=== PATIENT | female | born 1985 | race Two or more races ===

== ENCOUNTER 2016-08-23 22:46 | Emergency (ER) | payer MEDICAID ==
[~2016-08-23] VITALS: Ht 157.5 cm; Wt 79.4 kg
[~2016-08-23 22:46] MED LIST: ALBU8.5H8 IH; HYDR-3326 PO; TYLENOL PO
[2016-08-23] MEDS ORDERED: HYDROMORPHONE 1 MG/1 ML DISP.SYRIN IV ONE (23:15)
[2016-08-23] MEDS ORDERED: NITROFURANTOIN/NITROFURAN MAC 100 MG CAPSULE PO ONE (23:15)
[2016-08-23] MEDS ORDERED: ONDANSETRON IV *ER 4 MG/2 ML VIAL IV ONE (23:15)
[2016-08-23] MEDS ORDERED: CEFTRIAXONE 1 G in IV DEXTROSE 5% 50 ML IV ONE (23:15)
[2016-08-23 23:27] LABS: *BILIRUBIN,URIN NEGATIVE (NEGATIVE); *BLOOD, URINE 2+ (NEGATIVE); *CLARITY,URINE CLEAR (CLEAR); *COLOR,URINE YELLOW (YELLOW); *KETONES,URINE 1+ (NEGATIVE); *PROTEIN,URINE 1+ (NEGATIVE); *UROBILINOGEN,URINE 0.2 E.U./dl (NORMAL); LEUKOCYTE ESTERASE ,URINE 1+ (NEGATIVE); NITRITE, URINE NEGATIVE (NEGATIVE); UGLUCOSE NEGATIVE (NEGATIVE)
[2016-08-23] MEDS ORDERED: ONDANSETRON 4 MG/2 ML VIAL ONE (23:31)
[2016-08-23] MEDS ORDERED: NITROFURANTOIN/NITROFURAN MAC 100 MG CAPSULE ONE (23:31)
[2016-08-23] MEDS ORDERED: CEFTRIAXONE 1 G VIAL ONE (23:31)
[2016-08-23] MEDS ORDERED: HYDROMORPHONE 1 MG/1 ML DISP.SYRIN ONE (23:31)
[2016-08-23 23:32] LABS: *URINE HCG, QUAL NEGATIVE (NEGATIVE); BACTERIA,URINE FEW /HPF (NONE SEEN); SQUAMOUS EPITHELIAL CELL,UR FEW /HPF (NONE SEEN)
[2016-08-23 23:34] LABS: BASOPHILS % (AUTO) 0.3 % (0.0-2.0); EOSINOPHILS # (AUTO) 0.1 K/uL (0.0-0.7); EOSINOPHILS % (AUTO) 2.1 % (0.0-7.0); HEMATOCRIT 34.9 % (37-47); HEMOGLOBIN 11.1 G/DL (12.0-16.0); LYMPHOCYTES # (AUTO) 1.9 K/UL (0.8-4.8); LYMPHOCYTES % (AUTO) 30.2 % (20.5-51.5); MEAN CORPUSCULAR HEMOGLOBIN 23.8 UUG (27.0-31.0); MEAN CORPUSCULAR HGB CONC 32 g/dL (32.0-37.0); MONOCYTES # (AUTO) 0.4 K/UL (0.1-1.30); NEUTROPHILS % (AUTO) 61.4 % (38.5-71.5); PLATELET COUNT (AUTO) 391 K/UL (150-450); RED BLOOD CELL COUNT(AUTO) 4.65 MIL/UL (4.2-5.4); WHITE BLOOD COUNT (AUTO) 6.4 K/UL (4.0-11.2)
[2016-08-23 23:46] LABS: BILIRUBIN,TOTAL 0.3 mg/dL (0.2-1.0); CREATININE 0.6 mg/dL (0.6-1.3); POTASSIUM 3.5 mmol/L (3.5-5.1); TOTAL PROTEIN, SERUM 7.4 g/dL (6.4-8.2)
--- NOTE | 2016-08-24 00:31 | NUR ---
Patient discharged to home in stable conditon. Written and verbal after care instructions given. Patient verbalizes understanding of instructions.
== END 2016-08-24 00:32 | disposition home or self-care (01) ==
LOC: ER 22:55
DX: N12 Tubulo-interstitial nephritis, not specified as acute or chronic (principal); J45.909 Unspecified asthma, uncomplicated; Z88.6 Allergy status to analgesic agent; Z88.8 Allergy status to other drugs, medicaments and biological substances
CPT/HCPCS: 36415; 84703; 85025; 87086; A4663; J0696; J1170; J2405; J7060

== ENCOUNTER 2016-11-21 05:20 | Emergency (ER) | payer MEDICAID ==
[~2016-11-21] VITALS: Ht 154.9 cm; Wt 73.5 kg
--- NOTE | 2016-11-21 06:08 | NUR ---
Xray at bedside
--- NOTE | 2016-11-21 06:10 | NUR ---
Blood work specimen submitted to Lab @ 0605 by primary RN.
--- NOTE | 2016-11-21 06:10 | NUR ---
RT at bedside.
[2016-11-21 06:20] LABS: BASOPHILS % (AUTO) 0.3 % (0.0-2.0); EOSINOPHILS # (AUTO) 0.6 K/uL (0.0-0.7); EOSINOPHILS % (AUTO) 3.6 % (0.0-7.0); HEMATOCRIT 35.1 % (37-47); HEMOGLOBIN 11.6 G/DL (12.0-16.0); LYMPHOCYTES # (AUTO) 1.6 K/UL (0.8-4.8); LYMPHOCYTES % (AUTO) 10.4 % (20.5-51.5); MEAN CORPUSCULAR HEMOGLOBIN 24.5 UUG (27.0-31.0); MEAN CORPUSCULAR HGB CONC 33 g/dL (32.0-37.0); MEAN CORPUSCULAR VOLUME 74.3 FL (81.0-99.0); MONOCYTES # (AUTO) 0.5 K/UL (0.1-1.30); NEUTROPHILS % (AUTO) 82.7 % (38.5-71.5); PLATELET COUNT (AUTO) 415 K/UL (150-450); RED BLOOD CELL COUNT(AUTO) 4.73 MIL/UL (4.2-5.4); WHITE BLOOD COUNT (AUTO) 15.7 K/UL (4.0-11.2)
[2016-11-21 06:31] LABS: BILIRUBIN,DIRECT 0.1 mg/dL (0.0-0.2); BILIRUBIN,TOTAL 0.3 mg/dL (0.2-1.0); CREATININE 0.6 mg/dL (0.6-1.3); POTASSIUM 3.1 mmol/L (3.5-5.1); TOTAL PROTEIN, SERUM 7.4 g/dL (6.4-8.2)
--- NOTE | 2016-11-21 07:05 | NUR ---
Report to Alem AGUILAR. Patient in bed, no respiratory distress noted. Will continue to monitor patient.
[2016-11-21 07:42] VITALS: BP 110/61
--- NOTE | 2016-11-21 07:43 | NUR ---
Patient discharged to home in stable conditon. Written and verbal after care instructions given. Patient verbalizes understanding of instructions.
[2016-11-21 08:08] LABS: BAND % (MANUAL) 4 % (0-10); EOSINOPHILS % (MANUAL) 4 % (0-8); LYMPHOCYTES % (MANUAL) 12 % (20-40); MONOCYTES % (MANUAL) 3 % (2-10); NEUTROPHILS % (MANUAL) 77 % (42-75)
== END 2016-11-21 07:43 | disposition home or self-care (01) ==
LOC: ER 05:22
DX: J45.41 Moderate persistent asthma with (acute) exacerbation (principal); Z88.6 Allergy status to analgesic agent
CPT/HCPCS: 36415; 71010; 80048; 80076; 84484; 84703; 85025; 93005; 94644; 96374; 99285; A4663; J2930; J3590; J7030; 70030-TC

== ENCOUNTER 2018-11-08 18:44 | Emergency (ER) | payer MEDICAID, OTHER ==
[~2018-11-08] VITALS: Ht 154.9 cm; Wt 68.9 kg
--- NOTE | 2018-11-08 19:35 | NUR ---
PT RECEIVED C/O INTERMITTENT LUQ ABD PAIN AND FEVER X2DAYS [id number] DENIES HEADACHES/ CHILLS MONITORED ACCORDINGLY MD AT BEDSIDE FOR HX AND PHYSICAL
[2018-11-08 19:47] LABS: BASOPHILS % (AUTO) 0.5 % (0.0-2.0); EOSINOPHILS # (AUTO) 0.1 K/uL (0.0-0.7); EOSINOPHILS % (AUTO) 1.3 % (0.0-7.0); HEMATOCRIT 32.9 % (31.2-41.9); HEMOGLOBIN 10.6 g/dL (10.9-14.3); LYMPHOCYTES # (AUTO) 0.7 K/uL (20.0-40.0); LYMPHOCYTES % (AUTO) 13.2 % (20.5-51.5); MEAN CORPUSCULAR HEMOGLOBIN 23.1 uug (24.7-32.8); MEAN CORPUSCULAR HGB CONC 32 g/dL (32.3-35.6); MEAN CORPUSCULAR VOLUME 71.7 fL (75.5-95.3); MONOCYTES # (AUTO) 0.3 K/uL (2.0-10.0); MONOCYTES % (AUTO) 5.4 % (0.0-11.0); NEUTROPHILS # (AUTO) 4.5 K/uL (1.8-8.9); NEUTROPHILS % (AUTO) 79.6 % (38.5-71.5); PLATELET COUNT (AUTO) 282 K/uL (179-408); RED BLOOD CELL COUNT(AUTO) 4.59 MIL/uL (3.63-4.92); WHITE BLOOD COUNT (AUTO) 5.7 K/uL (3.8-11.8)
[2018-11-08 19:49] LABS: *BILIRUBIN,URIN NEGATIVE (NEGATIVE); *COLOR,URINE YELLOW (YELLOW); *KETONES,URINE NEGATIVE (NEGATIVE); *UROBILINOGEN,URINE 0.2 E.U./dl (NORMAL); LEUKOCYTE ESTERASE ,URINE NEGATIVE (NEGATIVE); NITRITE, URINE NEGATIVE (NEGATIVE); PH,URINE 6.5 (5.0-8.0); UGLUCOSE NEGATIVE (NEGATIVE)
[2018-11-08 19:50] LABS: *URINE HCG, QUAL NEGATIVE (NEGATIVE)
[2018-11-08 19:53] LABS: CREATININE 0.6 mg/dL (0.6-1.3)
[2018-11-08 19:57] LABS: *BLOOD, URINE TRACE (NEGATIVE); *CLARITY,URINE SLIGHTLY HAZY (CLEAR)
[2018-11-08 19:58] LABS: RBC,URINE 0-3 /HPF (0-3)
[2018-11-08 19:59] LABS: BILIRUBIN,DIRECT 0.1 mg/dL (0.0-0.2); BILIRUBIN,TOTAL 0.2 mg/dL (0.2-1.0); CALCIUM OXALATE CRYSTALS,UR FEW /HPF (NONE SEEN); MUCUS,URINE MODERATE /LPF (0-FEW); SQUAMOUS EPITHELIAL CELL,UR MODERATE /HPF (NONE SEEN); TOTAL PROTEIN, SERUM 7.3 g/dL (6.4-8.2)
[2018-11-08 20:30] VITALS: BP 116/78
--- NOTE | 2018-11-08 20:30 | NUR ---
Patient discharged to home in stable conditon. Written and verbal after care instructions given. Patient verbalizes understanding of instructions. Walked out of ER with no distress noted.
== END 2018-11-08 20:36 | disposition home or self-care (01) ==
LOC: ER 18:48
DX: R10.13 Epigastric pain (principal); R19.7 Diarrhea, unspecified; J45.909 Unspecified asthma, uncomplicated; Z79.899 Other long term (current) drug therapy; Z88.8 Allergy status to other drugs, medicaments and biological substances
CPT/HCPCS: 36415; 83690; 84703; 85025; A4663

== ENCOUNTER 2021-05-26 12:41 | Emergency (ER) | payer BC, MEDICAID ==
[~2021-05-26] VITALS: Ht 157.5 cm; Wt 77.1 kg
[2021-05-26 13:51] LABS: *BILIRUBIN,URIN NEGATIVE (NEGATIVE); *BLOOD, URINE 3+ (NEGATIVE); *COLOR,URINE YELLOW (YELLOW); *KETONES,URINE NEGATIVE (NEGATIVE); *UROBILINOGEN,URINE 0.2 E.U./dl (NORMAL); LEUKOCYTE ESTERASE ,URINE NEGATIVE (NEGATIVE); NITRITE, URINE NEGATIVE (NEGATIVE); PH,URINE 5.5 (5.0-8.0); UGLUCOSE NEGATIVE (NEGATIVE)
[2021-05-26 13:52] LABS: HEMATOCRIT 38.8 % (31.2-41.9); MEAN CORPUSCULAR HEMOGLOBIN 25.3 uug (24.7-32.8); MEAN CORPUSCULAR VOLUME 78.5 fL (75.5-95.3); PLATELET COUNT (AUTO) 481 K/uL (179-408)
[2021-05-26 13:52] LABS: *URINE HCG, QUAL NEG (NEGATIVE)
[2021-05-26] MEDS: ONDANSETRON 4 MG/2 ML VIAL IV ONE (13:53)
[2021-05-26] MEDS: IV NORMAL SALINE 1000 ML BAG IV ONE (13:53)
[2021-05-26] MEDS: MORPHINE SULFATE 2 MG/1 ML DISP.SYRIN IV ONE (13:54)
[2021-05-26] MEDS ORDERED: MORPHINE SULFATE 4 MG/1 ML DISP.SYRIN ONE ×3 (14:00→15:20)
[2021-05-26] MEDS ORDERED: ONDANSETRON 4 MG/2 ML VIAL ONE (14:00)
[2021-05-26 14:03] LABS: CREATININE 0.7 mg/dL (0.6-1.3); POTASSIUM 3.7 mmol/L (3.5-5.1)
[2021-05-26 14:09] LABS: BILIRUBIN,DIRECT 0.1 mg/dL (0.0-0.2); BILIRUBIN,TOTAL 0.6 mg/dL (0.2-1.0); TOTAL PROTEIN, SERUM 7.7 g/dL (6.4-8.2)
[2021-05-26] MEDS: MORPHINE SULFATE 4 MG/1 ML DISP.SYRIN IV ONE ×2 (14:52→15:15)
[2021-05-26] MEDS: HYDROMORPHONE 1 MG/1 ML DISP.SYRIN IV ONE (16:57)
[2021-05-26] MEDS ORDERED: HYDROMORPHONE 1 MG/1 ML DISP.SYRIN ONE (17:02)
--- NOTE | 2021-05-26 17:57 | NUR ---
FLACO MENDOZA TALKING TO DR. ARIZMENDI FROM [facility].
[2021-05-26 19:08] LABS: *CLARITY,URINE HAZY (CLEAR); BACTERIA,URINE FEW /HPF (NONE SEEN); SQUAMOUS EPITHELIAL CELL,UR FEW /HPF (NONE SEEN); URINE AMORPHOUS URATE MANY /HPF
--- NOTE | 2021-05-26 21:44 | NUR ---
Report given to Keira Matthews.
--- NOTE | 2021-05-26 22:53 | NUR ---
Pt picked up by ambulance via [facility] to be taken to [facility]. No SOB. Afebrile. AOx4.
== END 2021-05-26 22:09 | disposition short-term general hospital (02) ==
LOC: ER 12:42
DX: N13.2 Hydronephrosis with renal and ureteral calculous obstruction (principal); Z88.6 Allergy status to analgesic agent; Z20.822 Contact with and (suspected) exposure to COVID-19; J45.909 Unspecified asthma, uncomplicated
CPT/HCPCS: 36415; 74176; 80048; 80076; 81001; 83690; 84703; 85025; 87426; 96361; 96374; 96375; 96376; 99284; J1170; J2270 ×3; J2405; A4663; J7030